=== PATIENT | female | born 1985 | race Caucasian/White ===

== ENCOUNTER 2018-02-01 13:05 | Inpatient (IN) | payer BC ==
[~2018-02-01] VITALS: Ht 162.6 cm; Wt 88.5 kg
[2018-02-01] MEDS ORDERED: ALPR0.255 PO (14:27)
[2018-02-01] MEDS ORDERED: BUPR75 PO (14:27)
[2018-02-01] MEDS ORDERED: SERT50TA12 PO (14:27)
[2018-02-01] MEDS ORDERED: LORazepam 1 MG TABLET PO ONE (14:45)
[2018-02-01 15:08] LABS: BASOPHILS % (AUTO) 0.9 % (0.0-2.0); EOSINOPHILS % (AUTO) 0.5 % (1.0-6.0); HEMATOCRIT 39.5 % (36-46); HEMOGLOBIN 13.7 g/dL (12.0-16.0); LYMPHOCYTES # (AUTO) 1.8 K/uL (1.0-4.8); LYMPHOCYTES % (AUTO) 21.8 % (22.0-44.0); MEAN CORPUSCULAR HEMOGLOBIN 32.4 pg (26.0-34.0); MEAN CORPUSCULAR HGB CONC 34.7 G/dL (31.0-37.0); MEAN CORPUSCULAR VOLUME 94 fL (80-100); MONOCYTES # (AUTO) 0.5 K/uL (0.1-1.0); MONOCYTES % (AUTO) 6.4 % (2.0-9.0); NEUTROPHILS # (AUTO) 5.8 K/uL (1.8-7.7); NEUTROPHILS % (AUTO) 70.4 % (40.0-70.0); PLATELET COUNT (AUTO) 402 K/uL (150-450); RED BLOOD CELL COUNT(AUTO) 4.22 MIL/uL (4.00-5.20); RED CELL DISTRIBUTION WIDTH 12.9 % (11.5-14.5)
[2018-02-01 15:13] LABS: ANION GAP 5 mmol/L (8-16); CALCIUM, TOTAL 9.3 mg/dL (8.8-10.5); CARBON DIOXIDE 30 mmol/L (22-29); CHLORIDE 102 mmol/L (98-107); GLOMERULAR FILTR. RATE CALC > 60 mL/min (>60); GLUCOSE,RANDOM 95 mg/dL (70-110); POTASSIUM 4.3 mmol/L (3.5-5.1); SODIUM SERUM 137 mmol/L (136-145); UREA NITROGEN, BLOOD 11 mg/dL (7-18)
[2018-02-01 15:23] LABS: ALANINE AMINOTRANSFERASE 20 U/L (12-78); ALBUMIN 3.7 g/dL (3.4-5.0); ALKALINE PHOSPHATASE 96 U/L (46-116); ASPARTATE AMINOTRANSFERASE 14 U/L (15-37); BILIRUBIN,TOTAL 0.2 mg/dL (0.1-1.0); TOTAL PROTEIN, SERUM 8.7 g/dL (6.4-8.2)
[2018-02-01 16:02] LABS: AMPHET/METH SCREEN,URINE NEGATIVE (NEGATIVE); BARBITURATE SCREEN, URINE NEGATIVE (NEGATIVE); BENZODIAZEPINES SCREEN,URINE NEGATIVE (NEGATIVE); CANNABINOID SCREEN,URINE POSITIVE (NEGATIVE); COCAINE SCREEN,URINE NEGATIVE (NEGATIVE); METHADONE SCREEN, URINE NEGATIVE (NEGATIVE); OPIATE SCREEN,URINE NEGATIVE (NEGATIVE)
[2018-02-01 16:04] LABS: PHENCYCLIDINE SCREEN,URINE NEGATIVE (NEGATIVE)
[2018-02-01] MEDS ORDERED: HALOPERIDOL 5 MG TABLET PO ONE (16:30)
[2018-02-01] MEDS ORDERED: HydrOXYzine PAMOATE 50 MG CAPSULE PO PRN (17:00)
[2018-02-01] MEDS ORDERED: MAG HYDROX/AL HYDROX/SIMETH ES 30 ML SUSPENSION UDCUP PO PRN (17:00)
[2018-02-01] MEDS ORDERED: GuaiFENesin/D-METHORPHAN [SUGAR-FREE] 200-20MG/10 ML SYRUP UDCUP PO PRN (17:00)
[2018-02-01] MEDS ORDERED: PROMETHAZINE HCL 25 MG TABLET PO PRN (17:00)
[2018-02-01] MEDS ORDERED: TUBERCULIN, PURIFIED PROTEIN DERIVATIVE 5 TU/0.1 ML SYG ID ONE (17:00)
[2018-02-01] MEDS ORDERED: ACETAMINOPHEN 325 MG TABLET PO PRN (17:00)
[2018-02-01] MEDS ORDERED: LOPERAMIDE HCL 2 MG CAPSULE PO PRN (17:00)
[2018-02-01] MEDS ORDERED: OLANZapine 5 MG RAPDIS TABLET PO PRN (17:00)
[2018-02-01] MEDS ORDERED: LORazepam 2 MG TABLET PO PRN (17:00)
[2018-02-01] MEDS ORDERED: MAGNESIUM HYDROXIDE SUSPENSION 30 ML UDCUP PO PRN (17:00)
[2018-02-01 20:45] VITALS: BP 102/68
[2018-02-01] MEDS: THIAMINE HCL 100 MG TABLET PO SCH (21:31)
[2018-02-01] MEDS: OLANZapine 5 MG RAPDIS TABLET PO SCH (21:33)
[2018-02-02 06:19] LABS: EOSINOPHILS % (AUTO) 1.4 % (1.0-6.0); HEMATOCRIT 38.3 % (36-46); HEMOGLOBIN 13.2 g/dL (12.0-16.0); LYMPHOCYTES # (AUTO) 3.1 K/uL (1.0-4.8); MEAN CORPUSCULAR HEMOGLOBIN 32.6 pg (26.0-34.0); MEAN CORPUSCULAR HGB CONC 34.4 G/dL (31.0-37.0); MEAN CORPUSCULAR VOLUME 95 fL (80-100); MONOCYTES # (AUTO) 0.6 K/uL (0.1-1.0); MONOCYTES % (AUTO) 8.4 % (2.0-9.0); NEUTROPHILS # (AUTO) 3.5 K/uL (1.8-7.7); NEUTROPHILS % (AUTO) 47.2 % (40.0-70.0); PLATELET COUNT (AUTO) 362 K/uL (150-450); RED BLOOD CELL COUNT(AUTO) 4.04 MIL/uL (4.00-5.20); RED CELL DISTRIBUTION WIDTH 12.9 % (11.5-14.5)
[2018-02-02 06:35] LABS: HEMOGLOBIN A1C 4.9 % (4.5-6.2)
[2018-02-02 06:53] LABS: ALANINE AMINOTRANSFERASE 18 U/L (12-78); ALBUMIN 3.2 g/dL (3.4-5.0); ALKALINE PHOSPHATASE 83 U/L (46-116); ANION GAP 6 mmol/L (8-16); BILIRUBIN,TOTAL 0.2 mg/dL (0.1-1.0); CALCIUM, TOTAL 8.7 mg/dL (8.8-10.5); CARBON DIOXIDE 30 mmol/L (22-29); CHLORIDE 104 mmol/L (98-107); CHOL/HDL RATIO 2.7 (3.9-5.7); CHOLESTEROL 145 mg/dL (131-200); CREATININE 0.99 mg/dL (0.60-1.30); GLOMERULAR FILTR. RATE CALC > 60 mL/min (>60); GLUCOSE,RANDOM 82 mg/dL (70-110); HDL CHOLESTEROL 53 mg/dL (40-60); LDL CHOL (CALC.) 67 mg/dL (0-130); POTASSIUM 3.8 mmol/L (3.5-5.1); SODIUM SERUM 140 mmol/L (136-145); THYROID STIMULATING HORMONE 2.34 uIU/mL (0.36-3.74); TOTAL PROTEIN, SERUM 7.7 g/dL (6.4-8.2); TRIGLYCERIDES 124 mg/dL (15-150); UREA NITROGEN, BLOOD 10 mg/dL (7-18)
[2018-02-02 07:41] LABS: ASPARTATE AMINOTRANSFERASE 12 U/L (15-37)
[2018-02-02 08:42] VITALS: BP 112/70
[2018-02-02] MEDS: MULTIVITAMINS WITH MINERALS, THERAPEUTIC TABLET PO SCH (09:00)
[2018-02-02] MEDS ORDERED: SERTRALINE HCL 50 MG TABLET PO SCH (09:00)
[2018-02-02] MEDS ORDERED: BuPROPion HCL XL 150 MG ER TABLET PO SCH (09:00)
[2018-02-02] MEDS: FOLIC ACID 1 MG TABLET PO SCH (09:01)
[2018-02-02] MEDS: THIAMINE HCL 100 MG TABLET PO SCH ×2 (09:01→16:45)
[2018-02-02 16:05] VITALS: BP 108/71
[2018-02-02] MEDS: ZOLPIDEM TARTRATE 10 MG TABLET PO PRN (20:13)
[2018-02-02] MEDS: OLANZapine 5 MG RAPDIS TABLET PO SCH (20:13)
[2018-02-03] MEDS: LEVOTHYROXINE SODIUM 75 MCG TABLET PO SCH (07:02)
[2018-02-03 08:15] VITALS: BP 108/64
[2018-02-03] MEDS: LamoTRIgine 25 MG TABLET PO SCH (09:08)
[2018-02-03] MEDS: MULTIVITAMINS WITH MINERALS, THERAPEUTIC TABLET PO SCH (09:08)
[2018-02-03] MEDS: THIAMINE HCL 100 MG TABLET PO SCH ×2 (09:08→16:30)
[2018-02-03] MEDS: FLUoxetine HCL 20 MG CAPSULE PO SCH (09:09)
[2018-02-03] MEDS: FOLIC ACID 1 MG TABLET PO SCH (09:09)
[2018-02-03 17:11] VITALS: BP 116/79
[2018-02-03] MEDS ORDERED: NALT50TA PO (17:47)
[2018-02-03] MEDS ORDERED: OLAN5TAB30 PO (17:47)
[2018-02-03] MEDS ORDERED: FLUO-191 PO (17:47)
[2018-02-03] MEDS ORDERED: LAMO25 PO (17:47)
[2018-02-03] MEDS: ZOLPIDEM TARTRATE 10 MG TABLET PO PRN (20:05)
[2018-02-03] MEDS: OLANZapine 5 MG RAPDIS TABLET PO SCH (20:05)
[2018-02-04] MEDS: LEVOTHYROXINE SODIUM 75 MCG TABLET PO SCH (07:13)
[2018-02-04 08:10] VITALS: BP 129/78
[2018-02-04] MEDS: THIAMINE HCL 100 MG TABLET PO SCH (08:15)
[2018-02-04] MEDS: FLUoxetine HCL 20 MG CAPSULE PO SCH (08:15)
[2018-02-04] MEDS: LamoTRIgine 25 MG TABLET PO SCH (08:15)
[2018-02-04] MEDS: MULTIVITAMINS WITH MINERALS, THERAPEUTIC TABLET PO SCH (08:16)
[2018-02-04] MEDS: FOLIC ACID 1 MG TABLET PO SCH (08:16)
[2018-02-04] MEDS ORDERED: NALTREXONE HCL 50 MG TABLET PO SCH (09:00)
[2018-02-04] MEDS ORDERED: LEVO25TA9 PO (11:34)
== END 2018-02-04 14:45 | disposition home or self-care (01) | DRG 885 ==
LOC: EMS 13:07 → 3EX 18:58
PROVIDERS: ADMIT Psychiatry & Neurology Psychiatry; ATTEND Psychiatry & Neurology Psychiatry
DX: F25.9 Schizoaffective disorder, unspecified (principal); R45.851 Suicidal ideations; F32.9 Major depressive disorder, single episode, unspecified; E03.9 Hypothyroidism, unspecified; F12.90 Cannabis use, unspecified, uncomplicated; F41.9 Anxiety disorder, unspecified; Z82.49 Family history of ischemic heart disease and other diseases of the circulatory system; Z98.84 Bariatric surgery status; Z98.891 History of uterine scar from previous surgery; Z79.899 Other long term (current) drug therapy
CPT/HCPCS: 83036; 84439; 84443; 86592; 99285; G0480